=== PATIENT | male | born 1955 | race Caucasian/White ===

== ENCOUNTER 2018-04-23 11:31 | Emergency (ER) | payer BC, OTHER ==
[2018-04-23] MEDS ORDERED: Adacel (T-DAP) 0.5 ML SYRINGE ONE (11:50)
--- NOTE | 2018-04-23 13:06 | RAD ---
RIGHT HAND 3 VIEWS: Date: 04/23/18 PROVIDED CLINICAL HISTORY: Laceration to right index finger. FINDINGS: There is no evidence for fracture or other acute osseous abnormality. Alignment appears anatomic. Siobhan nt spaces appear preserved. No evidence for radiopaque foreign body. IMPRESSION: No evidence for an acute osseous abnormality or radiopaque foreign body. POS: BLADE
== END 2018-04-23 12:36 | disposition home or self-care (01) ==
LOC: ERS 11:31
DX: S61.210A Laceration without foreign body of right index finger without damage to nail, initial encounter (principal); W26.8XXA Contact with other sharp object(s), not elsewhere classified, initial encounter
CPT/HCPCS: 90471; 90715

== ENCOUNTER 2018-04-29 15:32 | Day surgery (SDC) | payer OTHER ==
[~2018-04-29 15:32] MED LIST: Dexamethasone 20 MG/5 ML VIAL ONE; Ketorolac Tromethamine 30 MG/ML VIAL ONE; Ondansetron PF 4 MG/2 ML Vial ONE; PHENYLEPHRINE-NS 100 MCG/ML 10 ML SYRINGE ONE; PROPOFOL 200 MG/20 ML VIAL ONE
[2018-04-29] MEDS ORDERED: Clindamycin/D5W 600 mg/50 ml Premix Bag ONE (17:28)
[2018-04-29 17:53] LABS: #Basophils 0.1 thou/uL (0.0-0.2); #Eosinphils 0.4 thou/uL (0.0-0.7); #Lymphocytes 2.1 thou/uL (1.20-3.40); #Monocytes 0.6 thou/uL (0.11-0.59); #Neutrophils 5.7 thou/uL (1.40-6.50); %Basophils 0.7 % (0.0-1.0); %Lymphocytes 23.3 % (21.0-51.0); %Monocytes 6.9 % (0.0-10.0); %Neutrophils 65.2 % (42.0-75.0); Hemoglobin 15.1 g/dL (14.0-18.0); Mean Corpuscular Volume 90.8 fL (78.0-98.0); Mean Platelet Volume 6.9 fL (7.4-10.4); Platelet Count 263 thou/uL (130-400); RBC Distribution Width 11.6 % (11.5-14.5); Red Blood Cell (RBC) Count 5.19 mill/uL (4.70-6.10); White Blood Cell (WBC) Count 8.8 thou/uL (4.8-10.8)
[2018-04-29] MEDS ORDERED: Bupivacaine PF 0.5% 30 ML VIAL ONE (21:20)
[2018-04-29] MEDS ORDERED: Sodium Chloride 0.9% 10 ML ONE (21:21)
[2018-04-29] MEDS ORDERED: Thrombin 5000 UNITS/5 ML VIAL ONE ×2 (21:21→22:43)
[2018-04-29] MEDS ORDERED: Bacitracin Zinc Ointment 30 gm TUBE ONE (21:21)
[2018-04-29] MEDS ORDERED: Sodium Chloride 0.9% 0 ML ONE (21:22)
[2018-04-29] MEDS ORDERED: Sodium Chloride 0.9% 20 ML ONE (21:44)
[2018-04-29] MEDS ORDERED: Bupivacaine HCl 0.5%/Epinephrine 1:200,000/PF 30 ml Vial ONE (21:44)
[2018-04-29] MEDS ORDERED: Fentanyl 100 MCG/2 ML VIAL ONE (22:52)
[2018-04-29] MEDS ORDERED: Ketorolac Tromethamine 30 MG/ML VIAL ONE (23:34)
--- NOTE | 2018-05-02 13:19 | OP ---
DATE OF PROCEDURE: 04/29/2018 PREOPERATIVE DIAGNOSIS: Right index finger complex wound, 4 x 1.5 cm. POSTOPERATIVE DIAGNOSIS: Right index finger complex wound, 4 x 1.5 cm. No gross infection. No exposed bone. PROCEDURES PERFORMED: 1. Wound debridement using the following techniques;. a. Excisional technique. b. Use of [place] blade, curette, tenotomy scissor, and Adson and 2 L of normal saline irrigation via Pulsavac. c. Down to soft tissue, but not involving bone or joint. No gross contamination. 2. Split-thickness skin graft, 4 x 1.5 cm, 0.20 thickness. SPECIMEN: None. BLOOD LOSS: Approximately 5 to 10 mL. TOURNIQUET TIME: None. [place] from the ipsilateral right leg. INDICATION: Injury at work with skin loss, had multiple exposed soft tissue and the need for coverage was indicated in a subcu manner. ANESTHESIA: General LMA technique augmented by 10 mL of 0.5% Marcaine block prior to the procedure, 5 more in the finger to act within and 20 given around a field block area for the skin graft harvest. DESCRIPTION OF PROCEDURE: After successful general LMA technique, the limb was prepped and draped. Time-out was done appropriately. We then prepped both the limb and the donor site. We debrided the 4 x 1.5 cm wound using the techniques outlined above. Then, we obtained the bleeding surface, covered this with Gel-Foam and thrombin, and proceeded to harvest the graft that was of appropriate length and size. We meshed the graft of 0.20 thickness from the ipsilateral leg after we had injected the region with 20 mL of 0.5% Marcaine, the meshed 1 to 1.5 graft was then placed with suman in appropriate position along the entire recipient site and then covered with bacitracin, then Adaptic, then mineral oil soaked cotton balls with suman and then a bulky dressing, 4x4s and a Piyush, held with Prosper wrap around the wrist. At the donor site, immediately upon harvest, we placed thrombin-soaked Gelfoam, kept this in place and covered it with 2 large Tegaderms, held on by benzoin. The patient then had Prosper wrap applied to the thigh and left the operating room without evidence of anesthetic or operative complication. Job ID: [id number]
== END 2018-04-30 00:36 | disposition home or self-care (01) ==
LOC: SDC 15:32
PROVIDERS: ATTEND Orthopaedic Surgery Hand Surgery
PROC: 0JBJ0ZZ Excision of Right Hand Subcutaneous Tissue and Fascia, Open Approach (ICD-10-PCS; principal; 2018-04-29)
PROC: 0HRFX74 Replacement of Right Hand Skin with Autologous Tissue Substitute, Partial Thickness, External Approach (ICD-10-PCS; principal; 2018-04-29)
DX: S61.210A Laceration without foreign body of right index finger without damage to nail, initial encounter (principal); W31.2XXA Contact with powered woodworking and forming machines, initial encounter; Y99.0 Civilian activity done for income or pay
CPT/HCPCS: 85025; J0670; J1100; J1885; J2405; J2704; J3010; J3490; S0020